=== PATIENT | female | born 1995 | race American Indian/Alaskan Native ===

== ENCOUNTER 2021-08-16 23:23 | Emergency (ER) | payer MEDICAID ==
[2021-08-16] MEDS ORDERED: Sodium Chloride 0.9% 10 ML Syringe FLUSH PRN (23:53)
[2021-08-16] MEDS ORDERED: LORazepam 2 MG/ML SDV IM ONE (23:53)
[2021-08-16] MEDS ORDERED: Sodium Chloride 0.9% 500 ML IV ONE (23:54)
[2021-08-16] MEDS ORDERED: Naloxone 0.4 MG/ML SDV IVPUSH PRN (23:54)
[2021-08-16] MEDS ORDERED: Haloperidol Lactate 5 MG/ML SDV IVPUSH ONE (23:59)
== END 2021-08-17 07:33 ==
LOC: JP.ED 23:23
DX: F15.129 Other stimulant abuse with intoxication, unspecified (principal); Z79.899 Other long term (current) drug therapy
CPT/HCPCS: 36415; 51702; 74018; 74018-26; 80048; 80305-QW; 80307; 81001; 81025; 82550; 85025; 96361; 96372; 96374; 99284-25; 99285; J1630; J2060; J3490; J7040

== ENCOUNTER 2021-08-19 08:45 | Emergency (ER) | payer OTHER, MEDICAID | END 2021-08-19 09:53 | LOC: JP.ED 08:45 | DX: F11.23 Opioid dependence with withdrawal (principal); R11.2 Nausea with vomiting, unspecified | CPT/HCPCS: 99282; 99284 ==

== ENCOUNTER 2021-08-22 09:35 | Emergency (ER) | payer MEDICAID ==
[2021-08-22] MEDS ORDERED: Iopamidol 612 MG/ML 100 ML Bottle IV PRN (10:13)
[2021-08-22] MEDS ORDERED: Sodium Chloride 0.9% 50 ML IV SCH (10:15)
[2021-08-22 10:41] LABS: ESTIMATED GFR > 60 (>60)
== END 2021-08-22 12:14 ==
LOC: JP.ED 09:35
DX: T18.9XXA Foreign body of alimentary tract, part unspecified, initial encounter (principal); Z72.0 Tobacco use
CPT/HCPCS: 36415; 71260; 74177; 80053; 80305-QW; 83605; 84703; 85025; 99283; 99284-25; J3490; Q9967

== ENCOUNTER 2021-08-23 11:00 | Emergency (ER) | payer OTHER, MEDICAID ==
[2021-08-23] MEDS ORDERED: Activated Charcoal/Water Susp 25 GM/120 ML Tube PO ONE (11:41)
[2021-08-23] MEDS ORDERED: Ondansetron 4 MG Tab.DIS PO ONE (11:45)
[2021-08-23 12:51] LABS: ESTIMATED GFR > 60 (>60)
== END 2021-08-23 16:07 ==
LOC: JP.ED 11:00
DX: T65.81 Toxic effect of latex (principal)
CPT/HCPCS: 36415; 71045; 71045-26; 80053; 80143; 80179; 80305-QW; 84443; 84484; 85025; 99284; 99285-25; Q0162